=== PATIENT | female | born 1975 | race Caucasian/White ===

== ENCOUNTER → 2020-11-27 | Outpatient (CLI) | payer OTHER ==
[2020-11-29 16:15] LABS: A/G RATIO 0.9 (0.7-1.7); ALBUMIN 3.1 g/dL (2.9-4.4); ALPHA-1-GLOBULIN 0.3 g/dL (0.0-0.4); ALPHA-2-GLOBULIN 0.9 g/dL (0.4-1.0); BETA GLOBULIN 1.2 g/dL (0.7-1.3); GAMMA GLOBULIN 0.9 g/dL (0.4-1.8); GLOBULIN, TOTAL 3.4 g/dL (2.2-3.9); M-SPIKE Not Observed g/dL (Not Observed); PROTEIN, TOTAL, SERUM 6.5 g/dL (6.0-8.5)
== END ==
LOC: LAB 15:36
PROVIDERS: Internal Medicine
DX: D64.9 Anemia, unspecified (principal); D89.89 Other specified disorders involving the immune mechanism, not elsewhere classified; M25.50 Pain in unspecified joint; R76.8 Other specified abnormal immunological findings in serum; R79.82 Elevated C-reactive protein (CRP); R70.0 Elevated erythrocyte sedimentation rate
CPT/HCPCS: 82607; 82728; 82746; 83520; 83540; 83550; 84155; 84165; 84466; 85045